=== PATIENT | female | born 1985 | race Two or more races ===

== ENCOUNTER 2018-10-08 22:56 | Emergency (ER) | payer OTHER, BC ==
[2018-10-08 23:00] VITALS: BP 95/59; PULSE 63; TEMP 98.1; BMI 23.8
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
[2018-10-08] MEDS ORDERED: KETOROLAC TROMETHAMINE 30 MG/1 ML VIAL IM ONE (23:29)
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
[2018-10-09] MEDS ORDERED: KETOROLAC TROMETHAMINE 30 MG/1 ML VIAL ONE (00:06)
== END 2018-10-09 00:16 | disposition home or self-care (01) ==
LOC: JER 22:56
PROC: 3E0233Z Introduction of Anti-inflammatory into Muscle, Percutaneous Approach (ICD-10-PCS; principal; 2018-10-08)
DX: S13.4XXA Sprain of ligaments of cervical spine, initial encounter (principal); V43.52XA Car driver injured in collision with other type car in traffic accident, initial encounter; Y92.414 Local residential or business street as the place of occurrence of the external cause; Y93.89 Activity, other specified; Y99.8 Other external cause status
CPT/HCPCS: 99281-25